=== PATIENT | male | born 1985 | race Asian ===

== ENCOUNTER 2023-02-03 05:19 | Emergency (ER) | payer OTHER ==
[~2023-02-03] VITALS: Ht 165.1 cm; Wt 112.0 kg
[~2023-02-03 05:19] MED LIST: B CO1CAP6 PO; LEVO750T68 PO
[2023-02-03] MEDS ORDERED: ATOR-2 PO (05:29)
[2023-02-03] MEDS ORDERED: MAG HYDROX/AL HYDROX/SIMETH ES 30 ML SUSPENSION UDCUP PO ONE (06:15)
[2023-02-03] MEDS ORDERED: OMEPRAZOLE 20 MG CAPSULE PO ONE (06:15)
[2023-02-03 06:42] LABS: HEMATOCRIT 41.3 % (41-53); HEMOGLOBIN 12.9 g/dL (13.5-17.5); LYMPHOCYTES # (AUTO) 1.6 K/uL (1.0-4.8); LYMPHOCYTES % (AUTO) 21.6 % (22.0-44.0); MEAN CORPUSCULAR HEMOGLOBIN 27.9 pg (26.0-34.0); MEAN CORPUSCULAR HGB CONC 31.1 G/dL (31.0-37.0); MEAN CORPUSCULAR VOLUME 89 fL (80-100); MONOCYTES # (AUTO) 0.8 K/uL (0.1-1.0); MONOCYTES % (AUTO) 10.4 % (2.0-9.0); NEUTROPHILS # (AUTO) 4.8 K/uL (1.8-7.7); PLATELET COUNT (AUTO) 183 K/uL (150-450); RED BLOOD CELL COUNT(AUTO) 4.62 MIL/uL (4.50-5.90); RED CELL DISTRIBUTION WIDTH 15.9 % (11.5-14.5)
[2023-02-03 06:43] VITALS: BP 130/92
[2023-02-03 06:59] LABS: CALCIUM, TOTAL 9.5 mg/dL (8.8-10.5); CREATININE 12.12 mg/dL (0.60-1.30); POTASSIUM 4.3 mmol/L (3.5-5.1)
[2023-02-03 07:04] LABS: ALBUMIN 3.9 g/dL (3.4-5.0); TOTAL PROTEIN, SERUM 7.8 g/dL (6.4-8.2)
[2023-02-03] MEDS ORDERED: OMEP1CAP32 PO (08:00)
[2023-02-03] MEDS ORDERED: FAMOTIDINE 20 MG TABLET PO ONE (08:00)
[2023-02-03] MEDS ORDERED: FAMO20 PO (08:00)
== END 2023-02-03 08:28 | disposition home or self-care (01) ==
LOC: EMS 05:19
DX: R10.13 Epigastric pain (principal); K21.9 Gastro-esophageal reflux disease without esophagitis; I25.10 Atherosclerotic heart disease of native coronary artery without angina pectoris; I12.0 Hypertensive chronic kidney disease with stage 5 chronic kidney disease or end stage renal disease; N18.6 End stage renal disease; E78.00 Pure hypercholesterolemia, unspecified; Z98.890 Other specified postprocedural states; Z99.2 Dependence on renal dialysis; Z91.013 Allergy to seafood
CPT/HCPCS: 71045; 80053; 85025; 93005; 93041; 99285; 36415-L1; 36415-TC

== ENCOUNTER 2023-02-11 20:02 | Emergency (ER) | payer OTHER ==
[~2023-02-11] VITALS: Ht 165.1 cm; Wt 113.0 kg
[~2023-02-11 20:02] MED LIST changes: +ATOR-2 PO; +FAMO20 PO; +OMEP1CAP32 PO
[2023-02-11 20:25] VITALS: BP 133/76; PULSE 102; RESP 18; TEMP 98.2
[2023-02-11] MEDS ORDERED: CLINDAMYCIN HCL 150 MG CAPSULE PO ONE (22:15)
[2023-02-12] MEDS ORDERED: CLIN-142 PO ×2 (02:16→02:20)
== END 2023-02-12 02:25 | disposition home or self-care (01) ==
LOC: EMS 20:04
DX: L03.116 Cellulitis of left lower limb (principal); L03.115 Cellulitis of right lower limb; E78.00 Pure hypercholesterolemia, unspecified; I12.0 Hypertensive chronic kidney disease with stage 5 chronic kidney disease or end stage renal disease; N18.6 End stage renal disease; Z99.2 Dependence on renal dialysis; Z98.890 Other specified postprocedural states; Z91.013 Allergy to seafood
CPT/HCPCS: 93970; 99284; Z7502; Z7610